=== PATIENT | male | born 1960 | race African-American/Black ===

== ENCOUNTER → 2016-10-14 | Outpatient (CLI) | payer MEDICARE ==
[~2016-10-14] MED LIST: AMBIEN10 MG PO; FLEXERIL10 MG PO; GABAPENTIN300 MG PO; HYDROCHLOROTHIA25 MG PO; KEFLEX500 MG PO; LORTAB 7.5-5001 TAB PO; MEDROL PO; PERCOCET5/325 PO; PREDNISONE10 MG PO; ROBAXIN PO; TRAMADOL HCL50 M1 PO; TYLOX 5/500 CAP1 CAP PO; VICODIN 5/500 T1 TAB PO
--- NOTE | ~2016-10-14 | CR172 ---
[facility] A Service of [facility] RADIOLOGY TEXT RESULTS PATIENT: JOHNNY KWOK LOCATION: [facility] : 62 UNIT #: [id number] AGE: [address]: Karen Ponce MD SEX: M ORDER DR: [id number] [facility] [address] [place], [place] [address] [id number] O MR#: [id number] Acc #: [id number] NAME: JOHNNY KWOK : 1960 SEX: M STUDY DATE/TIME: 10/14/2016 13:39 UNIT: [facility] ROOM: STUDY DESCRIPTION: CR Knee 3 Views Lt Attending Physician: Karen Ponce M.D. Referring Physician: Karen Ponce M.D. Ordering Physician: Karen Ponce M.D. Primary Care Physician: Karen Ponce M.D. MEDICAL IMAGING REPORT This report is preliminary unless electronic signature is present EXAM Left knee, 3 views, 10/14/2016. HISTORY Left knee pain, grinding sound in left knee for 10 days, osteoarthritis left knee. No known injury. FINDINGS AP and lateral projection of the knee shows smooth articular anatomy without indication of fracture or dislocation at the major weight-bearing surface of the knee. There is no indication of radiopaque foreign body about the knee surface or joint effusion. IMPRESSION Normal knee. Dictated by... Jose Youssef M.D. THIS IS AN ELECTRONICALLY VERIFIED REPORT Jose Youssef M.D. at 10/15/2016 2:11 PM VIJI/jag TD: 10/15/2016 09:47 JOB #: [id number] MEDICAL IMAGING REPORT Page 1 of 1 COPY
== END | disposition home or self-care (01) ==
LOC: CRAD 13:13
DX: M17.12 Unilateral primary osteoarthritis, left knee (principal)
CPT/HCPCS: 73562

== ENCOUNTER → 2016-11-06 | Outpatient (CLI) | payer MEDICARE ==
--- NOTE | ~2016-11-06 | MR103 ---
[facility] A Service of [facility] RADIOLOGY TEXT RESULTS PATIENT: JOHNNY KWOK LOCATION: [facility] : 62 UNIT #: [id number] AGE: [address]: Regla Paiz SEX: M ORDER DR: [id number] [facility] [address] [place], [place] [address] [id number] O MR#: [id number] Acc #: [id number] NAME: JOHNNY KWOK : 1960 SEX: M STUDY DATE/TIME: 11/06/2016 19:20 UNIT: [facility] ROOM: STUDY DESCRIPTION: MR Knee Wo Contrast Lt Attending Physician: Regla Paiz P.A.-C. Referring Physician: Regla Paiz P.A.-C. Ordering Physician: Regla Piaz P.A.-C. Primary Care Physician: Karen Ponce M.D. MRI CENTER REPORT This report is preliminary unless electronic signature is present. EXAM Left knee MRI without contrast 11/06/2016. HISTORY 56-year-old male with left knee pain for 1 month. No specific injury. No prior left knee surgery. COMPARISON Left knee x-rays 10/14/2016. TECHNIQUE Routine unenhanced multiplanar, multisequence high field MR imaging of the left knee was performed. FINDINGS No evidence of a meniscus tear. Cruciate and collateral ligaments are intact. Extensor mechanism is intact. No joint effusion. There is a popliteal cyst measuring 5.8 cm in length. Small, thin, near full-thickness chondral fissure, lateral femoral trochlea. Patellar articular cartilage appears intact. There is full-thickness articular cartilage loss in the far posterior nonweightbearing lateral femoral condyle with associated subchondral marrow edema. Medial compartment articular cartilage is intact. Incidental note of a 1.3-cm benign-appearing sclerotic lesion abutting the endosteal cortex of the posterior distal femoral metaphysis. 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 Remainder of the bone marrow signal is within expected limits. Visualized musculature is unremarkable. IMPRESSION [facility] A Service of [facility] RADIOLOGY TEXT RESULTS PATIENT: [facility]NN[facility] KWOK [id number] 62 UNIT #: [id number] AGE: [address]: Regla Paiz SEX: M ORDER DR: 1. No evidence of a meniscus tear or acute ligament injury. 2. Focal area of full-thickness articular cartilage loss, far posterior nonweightbearing lateral femoral condyle, with mild subchondral marrow edema. 3. Small near full-thickness chondral fissure, lateral femoral trochlea. 4. 5.8-cm popliteal cyst. Dictated by... Hunter Dominguez M.D. THIS IS AN ELECTRONICALLY VERIFIED REPORT Hunter Dominguez M.D. at 11/07/2016 4:20 PM Heladio TD: 11/07/2016 12:16 JOB #: [id number] MRI CENTER REPORT Page 1 of 1 COPY
== END | disposition home or self-care (01) ==
LOC: CMRI 16:00
DX: M25.362 Other instability, left knee (principal); M71.22 Synovial cyst of popliteal space [Baker], left knee; R60.0 Localized edema
CPT/HCPCS: 73721

== ENCOUNTER → 2016-11-07 | Outpatient (CLI) | payer MEDICARE ==
--- NOTE | ~2016-11-07 | MR112 ---
[facility] A Service of [facility] & [facility] RADIOLOGY TEXT RESULTS PATIENT: JOHNNY KWOK LOCATION: [facility] : 62 UNIT #: [id number] AGE: [address]: Jose Antonio Rosas MD SEX: M ORDER DR: [id number] [facility] [address] [place], [place] [address] [id number] O MR#: [id number] Acc #: [id number] NAME: JOHNNY KWOK : 1960 SEX: M STUDY DATE/TIME: 11/07/2016 13:09 UNIT: [facility] ROOM: STUDY DESCRIPTION: MR Lumbar WWo Contrast Attending Physician: Jose Antonio Rosas M.D. Referring Physician: Jose Antonio Rosas M.D. Ordering Physician: Jose Antonio Rosas M.D. Primary Care Physician: Karen Ponce M.D. MRI CENTER REPORT This report is preliminary unless electronic signature is present. EXAM Lumbar spine MRI with and without contrast, 11/07/2016 PROCEDURE Routine lumbar spine MRI with and without contrast. COMPARISON Prior MRI lumbar spine, 05/13/2016 HISTORY Back pain and right leg pain and numbness. FINDINGS Alignment is normal. Bone marrow signal is normal except for chronic degenerative changes. There is no marrow infiltration or replacement. The distal cord and conus are normal in position and appearance. The paraspinous tissues are unremarkable. At 1-2, the disc, canal and foramina are normal. At 2-3, there is a slight disc bulge and mild canal stenosis and borderline left and mild right foraminal stenosis. At 3-4, disc bulge and azfm-ca-pjwhoryd canal stenosis and moderate right and left foraminal stenosis. Overall though changes at 3-4 are actually slightly improved when compared to the study of 05/13/2016. At L4-5, there is no canal stenosis. There is mild or [id number]-[id number] right and left foraminal stenosis, all unchanged. At 5-1, there is no canal stenosis. It appears there has been right side surgery and there is granulation tissue surrounding the exiting S1 nerve root. There is no evidence of recurrent disc. There is no left and STS. [facility] A Service of [facility] & [facility] RADIOLOGY TEXT RESULTS PATIENT: JOHNNY KWOK LOCATION: [facility] : 62 UNIT #: [id number] AGE: [address]: Jose Antonio Rosas MD SEX: M ORDER DR: slight right foraminal narrowing but primarily due to granulation tissue. IMPRESSION 1. Postop changes at 5-1 without evidence of recurrent disc. 2. While there is canal and foraminal narrowing at 3-4 changes at 3-4 appear actually somewhat improved since the prior study of 05/13/2016. No new abnormality. Dictated by... Mikael Salcedo M.D. THIS IS AN ELECTRONICALLY VERIFIED REPORT Mikael Salcedo M.D. at 11/12/2016 5:20 PM JOY/jake TD: 11/11/2016 08:10 JOB #: [id number] MRI CENTER REPORT Page 1 of 1 COPY
--- NOTE | ~2016-11-07 | CR186 ---
[facility] A Service of [facility] RADIOLOGY TEXT RESULTS PATIENT: JOHNNY KWOK LOCATION: [facility] : 62 UNIT #: [id number] AGE: [address]: Jose Antonio Rosas MD SEX: M ORDER DR: [id number] [facility] [address] [place], [place] [address] [id number] O MR#: [id number] Acc #: [id number] NAME: JOHNNY KWOK : 1960 SEX: M STUDY DATE/TIME: 11/07/2016 13:56 UNIT: [facility] ROOM: STUDY DESCRIPTION: CR Lumbar Spine W Bend Min 6 V Attending Physician: Jose Antonio Rosas M.D. Referring Physician: Jose Antonio Rosas M.D. Ordering Physician: Jose Antonio Rosas M.D. Primary Care Physician: Karen Ponce M.D. MEDICAL IMAGING REPORT This report is preliminary unless electronic signature is present EXAM Lumbar spine with bending views INDICATION Lumbar radiculopathy with low back pain for 2 months. Patient had back surgery August 2016. FINDINGS AP, lateral, oblique, coned-down lateral and lateral flexion/extension views of the lumbar spine were obtained. The L1-2 and L2-3 disc spaces are normal. There is a vacuum disc phenomenon with marked disc space narrowing at L3-4, L4-5. There is a small amount of vacuum disc phenomenon at L5-S1. There are anterior osteophyte formations throughout the lumbar spine. There is no significant posterior spurring. There is no subluxation. There are no pars defects. IMPRESSION Advanced disc degenerative changes L3-4, L4-5 and L5-S1. No subluxation even in flexion or extension. Dictated by... Brian Santillan M.D. THIS IS AN ELECTRONICALLY VERIFIED REPORT Brian Santillan M.D. at 11/08/2016 3:55 PM ADRIAN/lisset TD: 11/08/2016 08:43 JOB #: [id number] MEDICAL IMAGING REPORT Page 1 of 1 COPY
[2016-11-07 13:10] LABS: POC - CREATININE 1.23 mg/dL (0.64-1.27); POC - GFR >60.0 mL/min (>60)
== END | disposition home or self-care (01) ==
LOC: CMRI 11-04 17:00
PROVIDERS: Neurological Surgery
DX: M47.26 Other spondylosis with radiculopathy, lumbar region (principal); M47.27 Other spondylosis with radiculopathy, lumbosacral region; M99.83 Other biomechanical lesions of lumbar region; Z98.890 Other specified postprocedural states
CPT/HCPCS: 72114; 72158; 82565; A9577